=== PATIENT | male | born 1965 | race Caucasian/White ===

== ENCOUNTER 2017-11-23 17:22 | Inpatient (IN) | payer BC ==
--- NOTE | 2017-11-23 18:33 | ED ---
ENT HPI <Leonel Arevalo - Last Filed: 11/23/17 21:16> - General Source: patient, RN notes reviewed Mode of arrival: ambulatory Limitations: no limitations <Darlene Christianson - Last Filed: 11/23/17 22:13> - General Chief complaint: Dental/Oral Stated complaint: Dental pain Time Seen by Provider: 11/23/17 18:06 - History of Present Illness Initial comments: This is a 52-year-old male who presents to the emergency department with chief complaint of dental abscess. Patient states that he is being treated for a right lower dental abscess with amoxicillin. He states he was seen by a dentist in [place] 2 weeks ago and has been taking amoxicillin ever since. He states that he has an appointment coming up for teeth extraction. Patient states that his pain is worsening. He states that he is now experiencing the inability to open his mouth fully. He states he has been unable to eat for the last couple of days because of this. He denies any fevers or chills, chest pain or shortness of breath, abdominal pain, nausea or vomiting, dizziness or headache. (Darlene Christianson) - Related Data Home Medications Medication Instructions Recorded Confirmed No Known Home Medications 11/23/17 11/23/17 Allergies Allergy/AdvReac Type Severity Reaction Status Date / Time No Known Allergies Allergy Verified 11/23/17 22:11 Review of Systems ROS Other: All systems not noted in ROS Statement are negative. <Leonel Arevalo - Last Filed: 11/23/17 21:16> ROS Other: All systems not noted in ROS Statement are negative. <Darlene Christianson - Last Filed: 11/23/17 22:13> ROS Statement: Those systems with pertinent positive or pertinent negative responses have been documented in the HPI. Past Medical History Past Medical History: No Reported History History of Any Multi-Drug Resistant Organisms: None Reported Past Surgical History: Orthopedic Surgery Past Psychological History: No Psychological Hx Reported Smoking Status: Current every day smoker Past Alcohol Use History: Daily Past Drug Use History: None Reported <Darlene Christianson - Last Filed: 11/23/17 22:13> General Exam <Leonel Arevalo - Last Filed: 11/23/17 21:16> Limitations: no limitations <Darlene Christianson - Last Filed: 11/23/17 22:13> - General Exam Comments Initial Comments: General: Awake and alert, well-developed; in no apparent distress. HEENT: Head atraumatic, normocephalic. Pupils are equal, round and reactive to light. Extraocular movements intact. Poor dentition throughout. There is localized swelling to the right mandible with tenderness on palpation. Oropharynx is moist and no areas of fluctuance along the gumline are noted. Limited ability to open the mouth, only able to lower the mandible approximately 2 cm. Neck: Supple. Normal ROM. Cardiovascular: Regular rate and rhythm. No murmurs, rubs or gallops. Chest symmetrical. Respiratory: Lungs clear to auscultation bilaterally. No wheezes, rales or rhonchi. Normal respiratory effort with no use of accessory muscles. Musculoskeletal: Normal ROM, no tenderness bilateral upper and lower extremities. Ambulating normally. Skin: [place], warm and dry without rashes or lesions. Neurological: Alert and oriented x3. CN II-XII grossly intact. Speech is fluent and answers are appropriate. No focal neuro deficits. Psychiatric: Normal mood and affect. No overt signs of depression or anxiety noted. (Darlene Christianson) Vital Signs 11/23/17 11/23/17 17:46 21:40 Temperature 98.2 F 97.0 F L Pulse Rate 76 75 Respiratory 20 16 Rate Blood Pressure 132/88 137/75 O2 Sat by Pulse 98 99 Oximetry Medical Decision Making - Lab Data Result diagrams: 11/23/17 18:20 11/23/17 18:20 <Leonel Arevalo - Last Filed: 11/23/17 21:16> - Lab Data Result diagrams: 11/23/17 18:20 11/23/17 18:20 - Radiology Data Radiology results: report reviewed, image reviewed <Darlene Christianson - Last Filed: 11/23/17 22:13> - Medical Decision Making I entered a placement ordered for this patient. (Leonel Arevalo) This is a 52-year-old male who presents to the emergency department with chief complaint of dental abscess. Patient has been on amoxicillin for 2 weeks. He states he is now having difficulty opening his mouth. On physical examination, there is swelling to the right mandible. Patient has limited range of motion of the mandible. Computed tomography scan was obtained which revealed an abscess within the infrazygomatic printed circuit board layout designer space on the right side. Abscess is most likely affecting the muscles, causing patient to have trismus. Patient does have an elevated white count at 15.3. Case discussed with attending physician, Dr. Chisholm. Recommends inpatient for IV antibiotics. Patient will be started on Unasyn. He will be admitted to Dr. Osborn. Patient is in agreement for admission. His vital signs are stable and he is in no acute distress. (Darlene Christianson) - Lab Data Lab Results 11/23/17 11/23/17 Range/Units 18:20 18:20 WBC 15.3 H (3.8-10.6) k/uL RBC 5.03 (4.30-5.90) m/uL Hgb 15.4 (13.0-17.5) gm/dL Hct 47.4 (39.0-53.0) % MCV 94.1 (80.0-100.0) fL MCH 30.5 (25.0-35.0) pg MCHC 32.4 (31.0-37.0) g/dL RDW 12.2 (11.5-15.5) % Plt Count 321 (150-450) k/uL Neutrophils % 68 % Lymphocytes % 18 % Monocytes % 9 % Eosinophils % 3 % Basophils % 1 % Neutrophils # 10.3 H (1.3-7.7) k/uL Lymphocytes # 2.7 (1.0-4.8) k/uL Monocytes # 1.4 H (0-1.0) k/uL Eosinophils # 0.5 (0-0.7) k/uL Basophils # 0.1 (0-0.2) k/uL Sodium 136 L (137-145) mmol/L Potassium 4.4 (3.5-5.1) mmol/L Chloride 100 (98-107) mmol/L Carbon Dioxide 25 (22-30) mmol/L Anion Gap 11 mmol/L BUN 15 (9-20) mg/dL Creatinine 0.91 (0.66-1.25) mg/dL Est GFR (CKD-EPI)AfAm >90 (>60 ml/min/1.73 sqM) Est GFR (CKD-EPI)NonAf >90 (>60 ml/min/1.73 sqM) Glucose 93 (74-99) mg/dL Calcium 9.4 (8.4-10.2) mg/dL Total Bilirubin 0.6 (0.2-1.3) mg/dL AST 21 (17-59) U/L ALT 23 (21-72) U/L Alkaline Phosphatase 79 (38-126) U/L Total Protein 7.1 (6.3-8.2) g/dL Albumin 3.9 (3.5-5.0) g/dL - Radiology Data CT soft tissue neck impression: Soft tissue abscess/phlegmon located within the right infra-zygomatic printed circuit board layout designer space. (Darlene Christianson) Disposition <Leonel Arevalo - Last Filed: 11/23/17 21:16> Is patient prescribed a controlled substance at d/c from ED?: No Time of Disposition: 20:51 <Darlene Christianson - Last Filed: 11/23/17 22:13> Clinical Impression: Dental abscess, Trismus Disposition: ADMITTED IP TO THIS [facility] Condition: Good
[2017-11-23 19:00] LABS: Basophils # (A) 0.1 k/uL (0-0.2); Basophils % (A) 1 %; Eosinophils # (A) 0.5 k/uL (0-0.7); Eosinophils % (A) 3 %; HCT 47.4 % (39.0-53.0); HGB 15.4 gm/dL (13.0-17.5); Lymphocytes # (A) 2.7 k/uL (1.0-4.8); Lymphocytes % (A) 18 %; MCH 30.5 pg (25.0-35.0); MCHC 32.4 g/dL (31.0-37.0); MCV 94.1 fL (80.0-100.0); Mean Platelet Volume 7.2; Monocytes # (A) 1.4 k/uL (0-1.0); Monocytes % (A) 9 %; Neutrophils # (A) 10.3 k/uL (1.3-7.7); Neutrophils % (A) 68 %; Platelet Count 321 k/uL (150-450); RBC 5.03 m/uL (4.30-5.90); RDW 12.2 % (11.5-15.5); WBC 15.3 k/uL (3.8-10.6)
[2017-11-23 19:01] LABS: ALT 23 U/L (21-72); AST 21 U/L (17-59); Albumin 3.9 g/dL (3.5-5.0); Alkaline Phosphatase 79 U/L (38-126); Anion Gap 11 mmol/L; Blood Urea Nitrogen 15 mg/dL (9-20); Calcium 9.4 mg/dL (8.4-10.2); Carbon Dioxide 25 mmol/L (22-30); Chloride 100 mmol/L (98-107); Glucose 93 mg/dL (74-99); Potassium 4.4 mmol/L (3.5-5.1); Sodium 136 mmol/L (137-145); Total Bilirubin 0.6 mg/dL (0.2-1.3); Total Protein 7.1 g/dL (6.3-8.2)
--- NOTE | 2017-11-23 19:43 | CT ---
EXAMINATION TYPE: CT soft tissue neck w con DATE OF EXAM: 11/23/2017 7:22 PM COMPARISON: None HISTORY: jaw pain CT DLP: 257.7 mGycm Automated exposure control for dose reduction was used. CONTRAST: CT scan of the neck is performed following with IV Contrast, patient injected with 100 mL o f Isovue 300. Axial images are obtained, coronal and sagittal reformatted images are reviewed. FINDINGS: There is a 3 cm mean diameter ill-defined low-attenuation defect located within the muscula ture of the right infrazygomatic client manager large law space, related to the right mandibular angle. CT attenuat ion measures approximately 25 Hounsfield units, likely correlating with proteinaceous fluid, which ca n be confirmed with MRI or ultrasound if necessary. There is associated enlargement and indistinctnes s of the surrounding musculature, consistent with edematous change. There is no soft tissue emphysema . No radiopaque foreign body. There is beam hardening artifact from dental amalgam which obscures the anatomy and pathology. MRI characterization will clarify and fully characterize both the soft tissue and skeletal extent of the abnormality. Vascular Structures: Unremarkable. Aerodigestive system: Airway is unremarkable. Pharyngeal assessment is unremarkable. Parotid/submandibular glands: No gross abnormality seen. Lymph node stations: Negative. Osseous Structures: Negative. IMPRESSION: SOFT TISSUE ABSCESS/PHLEGMON LOCATED WITHIN THE RIGHT INFRA ZYGOMATIC TRIMMING CUTTER SPACE.
[2017-11-23] MEDS ORDERED: NALOXONE 0.4 MG/ML 1 ML VIAL IV PRN (20:51)
[2017-11-23] MEDS ORDERED: IBUPROFEN 400 MG TAB PO PRN (20:51)
[2017-11-23] MEDS ORDERED: MORPHINE SULFATE 4 MG/ML SYRINGE IV PRN (20:51)
[2017-11-23] MEDS ORDERED: ONDANSETRON 4 MG/2 ML VIAL IVP PRN (20:51)
[2017-11-23 21:41] VITALS: RESP 16
[2017-11-23] MEDS ORDERED: NICOTINE 21MG/24HR PATCH TRANSDERM STA (21:43)
[2017-11-23] MEDS: SODIUM CHLORIDE 0.9% 1,000 ML IV SCH (21:44)
[2017-11-23] MEDS: AMPICILLIN-SULBACTAM 3 GM in SODIUM CHLORIDE 0.9% 100 ML IVPB SCH (22:34)
[2017-11-23 22:57] VITALS: BMI 23.5
[2017-11-24] MEDS: AMPICILLIN-SULBACTAM 3 GM in SODIUM CHLORIDE 0.9% 100 ML IVPB SCH ×2 (04:16→09:02)
[2017-11-24] MEDS: KETOROLAC 30 MG/ML 1 ML VIAL IVP PRN ×2 (04:22→09:07)
[2017-11-24 07:35] VITALS: BP 114/62; PULSE 95; TEMP 98.7
[2017-11-24 08:58] LABS: Basophils # (A) 0.1 k/uL (0-0.2); Basophils % (A) 1 %; Eosinophils # (A) 0.4 k/uL (0-0.7); Eosinophils % (A) 3 %; HCT 44.7 % (39.0-53.0); HGB 14.5 gm/dL (13.0-17.5); Lymphocytes # (A) 2.4 k/uL (1.0-4.8); Lymphocytes % (A) 17 %; MCH 30.8 pg (25.0-35.0); MCHC 32.5 g/dL (31.0-37.0); MCV 94.8 fL (80.0-100.0); Mean Platelet Volume 7.2; Monocytes # (A) 1.1 k/uL (0-1.0); Monocytes % (A) 8 %; Neutrophils # (A) 10.2 k/uL (1.3-7.7); Neutrophils % (A) 71 %; Platelet Count 345 k/uL (150-450); RBC 4.72 m/uL (4.30-5.90); RDW 12.2 % (11.5-15.5); WBC 14.4 k/uL (3.8-10.6)
[2017-11-24 09:15] LABS: Anion Gap 8 mmol/L; Blood Urea Nitrogen 13 mg/dL (9-20); Calcium 9.1 mg/dL (8.4-10.2); Carbon Dioxide 25 mmol/L (22-30); Chloride 104 mmol/L (98-107); Glucose 122 mg/dL (74-99); Potassium 4.4 mmol/L (3.5-5.1); Sodium 137 mmol/L (137-145)
[2017-11-24] MEDS: SODIUM CHLORIDE 0.9% 1,000 ML IV SCH (11:11)
--- NOTE | 2017-11-24 12:58 | HP ---
HISTORY AND PHYSICAL CHIEF COMPLAINT: Pain and swelling right side of the face was inability to open mouth. HISTORY OF PRESENT ILLNESS: This is the first known admission for this 52-year-old white male. He has had toothache on the right side was going to go to the dentist, but then he had a fairly rapid increase of swelling and pain in the right cheek area and came to the emergency room because he could not move his jaw. Studies suggested that he had a cellulitis or abscess beneath the masseter muscle and he was admitted. REVIEW OF SYSTEMS: He has had no neurologic problems, difficulty with vision or hearing, shortness of breath, cough, hemoptysis, chest pain, heart disease, murmurs, rheumatic fever, infarctions, abdominal pain, nausea, vomiting, diarrhea, melena, hematochezia, colitis, diverticulosis, diverticulitis, hemorrhoids, jaundice, hepatitis, cirrhosis, hematuria, frequency, urgency, arthritis, arthralgias, diabetes, etc. Past medical history, family history, personal and social histories were all otherwise unremarkable and noncontributory. He takes no medication. He has had no surgery. He is not allergic to any medication. He smokes a pack of cigarettes a day and drinks at least 7-10 beers a day. PHYSICAL EXAMINATION: Blood pressure 126/89 with a pulse of 90, respiration 16 and temperature 97. In general, he appeared to be slender, well developed, well nourished, in no acute distress. Skin color is normal. Skin is warm and dry. Lymph nodes are not enlarged. Head, ears, eyes, nose, mouth, and throat were normal as well as could be examined. He could not open his mouth more than about 0.5 inch. He had tender swelling in the right cheek area. Neck veins were not distended. Carotids normal. The chest is clear. Cardiac exam is normal. The abdomen is soft, nontender. Extremities are normal. IMPRESSION: Periapical abscess with sub masses, cellulitis or abscess. PLAN: IV fluids and IV antibiotics. MMODL / IJN: [id number] /
--- NOTE | 2017-11-24 18:20 | DS ---
DISCHARGE SUMMARY CHIEF COMPLAINT: Dental abscess and trismus. HISTORY OF PRESENT ILLNESS AND PHYSICAL EXAMINATION: Details of this man's history and physical can be found in the initial workup. COURSE IN THE HOSPITAL: After admission he was placed on bedrest, started on intravenous fluid and IV antibiotics. The following morning, the pain and swelling had gone down and he was able to move the mandible a lot more. He had a dental appointment and it was felt that he could be released to go to the dentist. He will be discharged on Augmentin 875 twice a day, and he will be seen in the office in several days. FINAL DIAGNOSIS: Periapical abscess with submasseteric cellulitis or abscess. OPERATIONS: None. CONSULTATIONS: None. He is improved. MMODL / IJN: [id number] /
[2017-11-24] MEDS ORDERED: AMOXIC-POT CLAV 875-125MG 1 EACH TAB PO SCH (21:00)
== END 2017-11-24 12:15 | disposition home or self-care (01) | DRG 158 ==
LOC: EC 17:22 → 5MS5E 21:16
PROVIDERS: ADMIT Family Medicine; ATTEND Family Medicine
DX: K04.7 Periapical abscess without sinus (principal); K12.2 Cellulitis and abscess of mouth; M27.2 Inflammatory conditions of jaws; F17.200 Nicotine dependence, unspecified, uncomplicated; M26.52 Limited mandibular range of motion
CPT/HCPCS: 36415; 70491; 80048; 80053; 85025; 87040; 99284

== ENCOUNTER → 2019-01-16 | Outpatient (CLI) | payer BC ==
--- NOTE | 2019-01-16 09:04 | XR ---
EXAMINATION TYPE: XR chest 2V DATE OF EXAM: 01/16/2019 COMPARISON: NONE TECHNIQUE: PA and lateral views submitted. HISTORY: Cough FINDINGS: The lungs are clear and there is no pneumothorax, pleural effusion, or focal pneumonia. Hyperinflat ion correlate for COPD. Hypertrophic and degenerative change of the spine. No overt failure. IMPRESSION: 1. No acute process. Correlate for COPD.
== END | disposition home or self-care (01) ==
LOC: RADXRYALE 08:36
PROVIDERS: ATTEND Physician Assistant Medical
DX: R05 Cough (principal)
CPT/HCPCS: 71046

== ENCOUNTER → 2019-04-03 | Day surgery (SDC) | payer BC ==
[2019-03-30 10:15] VITALS: BMI 22.7
[~2019-04-03] MED LIST: LACTATED RINGERS 1,000 ML IV SCH; LIDOCAINE 1% 20 ML VIAL (10MG/ML) FOR IV START INTRADERMA PRN; LIDOCAINE 1% INJ 10MG/ML (20 ML MDV) ONE; MIDAZOLAM 2 MG/2 ML VIAL ONE; PROPOFOL 10 MG/ML 20 ML VIAL IV ONE; fentaNYL (PF) 50 MCG/ML 2 ML AMP ONE
[2019-04-03 10:34] VITALS: TEMP 98.3
[2019-04-03 11:32] VITALS: RESP 17
--- NOTE | 2019-04-03 11:33 | P.PCN ---
Date of Procedure: 04/03/19 Description of Procedure: BRIEF HISTORY: Patient is a 53-year-old male presenting for outpatient colonoscopy for screening for malignant neoplasm of the colon. No prior colonoscopies. No change in bowel habits, blood per rectum or abdominal pain reported. No family history of colon cancer. PROCEDURE PERFORMED: Colonoscopy with polypectomy. PREOPERATIVE DIAGNOSIS: Screening for malignant neoplasm of the colon, no prior colonoscopies reported. ESTIMATED BLOOD LOSS: Minimal. IV sedation per Anesthesia. PROCEDURE: After informed consent was obtained, the patient, was brought into the endoscopy unit. IV sedation was administered by Anesthesia under continuous monitoring. Digital rectal examination was normal. Initially the Olympus CF-190 flexible video colonoscope was then inserted in the rectum, gradually advanced into the cecum without any difficulty. Careful examination was performed as the scope was gradually being withdrawn. Ileocecal valve and the appendiceal orifice were visualized and appeared normal. Prep was excellent. Mucosa of the cecum, ascending colon, transverse colon, descending colon, sigmoid colon, and rectum appeared normal. Diminutive 2 mm transverse colon polyp removed with cold forcep polypectomy. Diminutive 1 mm sigmoid polyp removed with cold forceps polypectomy. 2 diminutive 1 mm rectal polyps removed with cold forcep polypectomy and 1 sessile 5 mm rectal polyp removed with cold snare polypectomy. Retroflexion was performed in the rectum and no lesions were seen. The patient tolerated the procedure well. IMPRESSION: 4 diminutive polyps measuring 1-2 mm in size removed from the transverse colon, sigmoid colon and rectum with cold forceps. Sessile rectal polyp removed with cold snare polypectomy. RECOMMENDATIONS: Findings of this examination were discussed with the patient and his . Okay to resume diet. Okay to resume medications. Await pathology from polypectomies. Would recommend repeat colonoscopy in 5 years for colon polyps pending pathology from polypectomies..
[2019-04-03 11:44] VITALS: BP 119/71; PULSE 72
== END ==
LOC: ORWHC2ENDO 09:54
PROVIDERS: ATTEND Internal Medicine
DX: Z12.11 Encounter for screening for malignant neoplasm of colon (principal); D12.3 Benign neoplasm of transverse colon; D12.8 Benign neoplasm of rectum; K63.5 Polyp of colon; Z90.49 Acquired absence of other specified parts of digestive tract; Z98.890 Other specified postprocedural states; Z87.19 Personal history of other diseases of the digestive system
CPT/HCPCS: 88305; 45380; 45385; J2250; J2001; J3010; J2704

== ENCOUNTER → 2021-11-17 | Outpatient (CLI) | payer BC ==
--- NOTE | 2021-11-18 07:05 | XR ---
EXAMINATION TYPE: XR shoulder complete RT DATE OF EXAM: 11/17/2021 4:28 PM INDICATION: Patient age:Male; 56 years old; Reason for study: [id number] RT SHLD PAIN; COMPARISON: Chest radiograph 01/08/2019. TECHNIQUE: The right shoulder was examined in AP, internally rotated and scapular Y projections. . FINDINGS: No evidence of acute osseous pathology, joint dislocation, or soft tissue swelling. The remaining por tions of the visualized chest are unremarkable. IMPRESSION: No acute osseous pathology.
== END | disposition home or self-care (01) ==
LOC: RADXRYALE 16:18
PROVIDERS: ATTEND Physician Assistant
DX: M25.511 Pain in right shoulder (principal)

== ENCOUNTER → 2021-12-15 | Outpatient (CLI) | payer BC ==
--- NOTE | 2021-12-15 21:37 | MR ---
EXAMINATION TYPE: MR shoulder RT wo con DATE OF EXAM: 12/15/2021 COMPARISON: Right shoulder x-ray November 17, 2021 HISTORY: Right shoulder pain and limited range of motion. TECHNIQUE: Multiplanar, multisequence imaging of the right shoulder is performed without contrast. FINDINGS: Rotator Cuff: Distal supraspinatus and infraspinatus tendons are grossly intact. Subscapularis tendon is intact. Rotator cuff muscle bulk is preserved. Acromioclavicular Joint: Moderate narrowing and superior capsular hypertrophy. Glenohumeral Joint: Small size joint effusion. Moderate narrowing. No significant spurring. Labrum: Increased signal superior labrum consistent with degenerative tearing. Biceps Tendon: The long head of biceps is in normal location within bicipital groove. More prominent fluid signal surrounds bicipital tendon greater than expected for glenohumeral joint effusion. Bone marrow signal: No focal abnormal marrow signal is appreciated. Other: No additional significant abnormality is appreciated. IMPRESSION: [id number] degenerative changes in the right shoulder as detailed above. Superior l abral tear is present. Probable bicipital tenosynovitis noted.
== END | disposition home or self-care (01) ==
LOC: RADMRIMAIN 17:35
PROVIDERS: ATTEND Physician Assistant
DX: M19.011 Primary osteoarthritis, right shoulder (principal); M75.111 Incomplete rotator cuff tear or rupture of right shoulder, not specified as traumatic